=== PATIENT | male | born 1995 | race Caucasian/White ===

== ENCOUNTER 2019-06-17 15:48 | Emergency (ER) | payer OTHER ==
[~2019-06-17] VITALS: Ht 185.4 cm; Wt 107.2 kg
[2019-06-17] MEDS ORDERED: IBUPROFEN 800 MG TAB PO ONE (16:45)
[2019-06-17] MEDS ORDERED: ACETAMINOPHEN 500 MG TAB PO ONE (16:45)
[2019-06-17 16:58] LABS: INFLUENZA A AMPLIFICATION NEGATIVE (NEGATIVE); INFLUENZA B AMPLIFICATION NEGATIVE (NEGATIVE)
[2019-06-17 21:26] VITALS: BP 138/70
--- NOTE | 2019-06-18 14:10 | REP ---
REASON: Cough and fever. PRIORS: None. TWO-VIEW CHEST: FINDINGS: The superior mediastinal structures are midline. The cardiac silhouette is unremarkable in size, shape, and position. The diaphragmatic surfaces of the lungs are regular, and the costophrenic angles are clear. The pulmonary [place] are clear. The imaged osseous structures are intact. IMPRESSION: There is no acute cardiopulmonary disease. Unreviewed
== END 2019-06-17 21:51 | disposition home or self-care (01) ==
LOC: M ED 15:48
DX: R50.9 Fever, unspecified (principal); J06.9 Acute upper respiratory infection, unspecified; F17.290 Nicotine dependence, other tobacco product, uncomplicated

== ENCOUNTER → 2020-03-25 | Outpatient (REF) | payer OTHER ==
[2020-03-25 11:24] LABS: SEMEN APPEARANCE OPAQUE (OPAQUE); SEMEN VISCOSITY LIQUID (LIQUID); SEMEN VOLUME 3.5 ml (2.0-5.0)
[2020-03-25 11:25] LABS: SPERM CONCENTRATION 22.8 M/ml (>=15.0); WBC CONCENTRATION <=1 M/ml (<=1 M/ml)
== END ==
LOC: M SFHCWAGY 10:42
PROVIDERS: ATTEND Obstetrics & Gynecology
DX: N46.9 Male infertility, unspecified (principal)